=== PATIENT | female | born 1960 | race Two or more races ===

== ENCOUNTER 2019-02-27 15:48 | Emergency (ER) | payer SELFPAY ==
[~2019-02-27] VITALS: Ht 162.6 cm; Wt 116.6 kg
[2019-02-27 16:34] LABS: Basophils # (auto) 0 uL; Basophils % (auto) 0.6 % (0.0-2.0); Eosinophils # (auto) 0.1 uL; Eosinophils % (auto) 1.3 % (0.0-7.0); Hematocrit 45.4 % (36.0-46.0); Hemoglobin 14.8 g/dL (12.2-16.2); Lymphocytes # (auto) 2.2 uL; Lymphocytes % (auto) 37.2 % (10.0-50.0); Mean Corpuscular Hgb Conc. 32.6 g/dL (32.0-36.0); Monocytes # (auto) 0.4 uL; Monocytes % (auto) 7.1 % (0.0-12.0); Neutrophils # (auto) 3.1 uL; Neutrophils % (auto) 53.8 % (37.0-80.0); Platelet Count (auto) 161 10^3/uL (140-450); Red Cell Distribution Width 14.9 % (11.8-14.3); White Blood Cell 5.8 10^3/uL (4.4-10.8)
[2019-02-27 16:46] LABS: Alanine Aminotransferase 28 U/L (13-56); Albumin 3.1 g/dL (3.4-5.0); Anion Gap 8 (5-15); Aspartate Aminotransferase 17 U/L (15-37); BUN/Creatinine Ratio 24.6; Blood Urea Nitrogen 16 mg/dL (7-18); Calcium 8.9 mg/dL (8.5-10.1); Carbon Dioxide 27 mmol/L (21-32); Chloride 105 mmol/L (98-107); GFR African American 120 mL/min; GFR Non-African American 99 mL/min; Glucose 292 mg/dL (74-106); Sodium 140 mmol/L (136-145)
[2019-02-27 16:50] LABS: Alkaline Phosphatase 101 U/L (45-117); Bilirubin, Total 0.4 mg/dL (0.2-1.0); Total Protein 7.2 g/dL (6.4-8.2)
[2019-02-27] MEDS ORDERED: HYDROcodone-ACET 10/325MG TAB PO ONE (19:00)
[2019-02-27 21:30] VITALS: BP 111/65
== END 2019-02-27 22:00 | disposition home or self-care (01) ==
LOC: EDBD 15:48 → ER 15:55
DX: S93.401A Sprain of unspecified ligament of right ankle, initial encounter (principal); S90.31XA Contusion of right foot, initial encounter; E11.9 Type 2 diabetes mellitus without complications; M19.90 Unspecified osteoarthritis, unspecified site; X50.0XXA Overexertion from strenuous movement or load, initial encounter; Y93.89 Activity, other specified; Y99.8 Other external cause status; Y92.89 Other specified places as the place of occurrence of the external cause
CPT/HCPCS: 36415; 73610; 73630; 80053; 84484; 85025